=== PATIENT | female | born 1935 | race Two or more races ===

== ENCOUNTER 2022-02-06 18:32 | Emergency (ER) | payer OTHER ==
[~2022-02-06] VITALS: Ht 167.6 cm; Wt 45.4 kg
[2022-02-06] MEDS ORDERED: LEVOTHYROXINE100 MC1 PO (19:34)
[2022-02-06] MEDS ORDERED: DIOVAN160 M1 PO (19:35)
[2022-02-06] MEDS ORDERED: INDERAL XL80 MG (19:35)
[2022-02-06] MEDS ORDERED: SERTRALINE HCL100 MG PO (19:35)
[2022-02-06] MEDS ORDERED: GALANTAMINE HBR24 MG PO (19:35)
[2022-02-06] MEDS ORDERED: PEPCID AC20 MG PO (19:36)
[2022-02-06] MEDS ORDERED: TRAZODONE HCL150 MG (19:36)
== END 2022-02-06 21:27 | disposition home or self-care (01) ==
LOC: ER 18:32
DX: S00.93XA Contusion of unspecified part of head, initial encounter (principal); W19.XXXA Unspecified fall, initial encounter; Y93.9 Activity, unspecified; Y92.129 Unspecified place in nursing home as the place of occurrence of the external cause; Y99.9 Unspecified external cause status